=== PATIENT | male | born 1960 | race Caucasian/White ===

== ENCOUNTER → 2024-12-17 09:40 | Outpatient (BNVA) | payer MEDICARE, SELFPAY | PROVIDERS: Visit Provider Dermatology | DX: L72.8 Other follicular cysts of the skin and subcutaneous tissue (principal); D22.5 Melanocytic nevi of trunk; L57.8 Other skin changes due to chronic exposure to nonionizing radiation; L57.0 Actinic keratosis | CPT/HCPCS: 17000; 99203 ==